=== PATIENT | female | born 1990 | race African-American/Black ===

== ENCOUNTER 2017-07-14 04:05 | Emergency (ER) | payer MEDICAID ==
[~2017-07-14] VITALS: Ht 157.5 cm; Wt 90.7 kg
[2017-07-14 04:13] VITALS: BP 182/83
[2017-07-14] MEDS ORDERED: AMOX500C PO (04:35)
--- NOTE | 2017-07-14 04:36 | PHYS DOC ---
Past Medical History Past Medical History: Asthma Past Surgical History: Additional Information: non smoker Alcohol Use: None Drug Use: None Adult General Chief Complaint Chief Complaint: COUGH HPI HPI Patient is a 26 year old female who presents with sore throat. Started a few days ago. Hard to swallow now. Has a little cough. No vomiting. No rash. Review of Systems Review of Systems Constitutional: Denies fever or chills Eyes: Denies change in visual acuity, redness, or eye pain HENT: POS nasal congestion or sore throat Respiratory: some cough; no shortness of breath Cardiovascular: No chest pain GI: Denies abdominal pain, nausea, vomiting, bloody stools or diarrhea : Denies dysuria or hematuria Musculoskeletal: Denies back pain or joint pain Integument: Denies rash or skin lesions Neurologic: Denies headache, focal weakness or sensory changes Allergies Allergies Allergies Coded Allergies Type Severity Reaction Last Updated Verified No Known Drug Allergies 01/28/15 No Physical Exam Physical Exam Constitutional: Well developed, well nourished, no acute distress, non-toxic appearance. HENT: Normocephalic, atraumatic, TM clear bilaterally; bilateral external ears normal, oropharynx moist,enlarged tonsils bilaterally with erythema; no exudate , nose normal. Eyes: PERRLA, EOMI, conjunctiva normal, no discharge. Neck: Normal range of motion, no tenderness, supple, no stridor. Cardiovascular:Heart rate regular rhythm, no murmur Lungs & Thorax: Bilateral breath sounds clear to auscultation Abdomen: Bowel sounds normal, soft, no tenderness, no masses, no pulsatile masses. Skin: Warm, dry, no erythema, no rash. Back: No tenderness, no CVA tenderness. Extremities: No tenderness, no cyanosis, no clubbing, ROM intact, no edema. Neurologic: Alert and oriented X 3, normal motor function, normal sensory function, no focal deficits noted. Psychologic: Affect normal, judgement normal, mood normal. Current Patient Data Vital Signs Vital Signs Date Time Temp Pulse Resp B/P (MAP) Pulse Ox O2 Delivery O2 Flow Rate FiO2 07/14/17 04:13 98.7 120 22 98 Room Air 98.7 Course & Med Decision Making Course & Med Decision Making No evidence of drooling or airway compromise. Treat for strep. Amoxicillin. Marek Disclaimer Marek Disclaimer This electronic medical record was generated, in whole or in part, using a voice recognition dictation system. Departure Departure Impression: Primary Impression: Pharyngitis Disposition: HOME, SELF-CARE Condition: STABLE Referrals: NO PCP (PCP) Patient Instructions: Viral and Bacterial Pharyngitis Scripts Amoxicillin (AMOXICILLIN) 500 Mg Capsule 1 CAP PO TID, #30 CAP Prov: RONY GARDNER MD 07/14/17 Problem Qualifiers Primary Impression: Pharyngitis Pharyngitis/tonsillitis etiology: unspecified etiology Qualified Codes: J02.9 - Acute pharyngitis, unspecified RONY GARDNER MD Jul 14, 2017 04:36
== END 2017-07-14 04:38 | disposition home or self-care (01) ==
LOC: ER 04:05
DX: J02.9 Acute pharyngitis, unspecified (principal); R05 Cough; J45.909 Unspecified asthma, uncomplicated
CPT/HCPCS: 99283

== ENCOUNTER 2017-09-14 07:28 | Observation (INO) | payer OTHER ==
[2017-09-10 02:51] VITALS: BP 136/88
[~2017-09-14 07:28] MED LIST: AMOX500C PO; CLIN150C14 PO
== END 2017-09-14 08:20 | disposition home or self-care (01) ==
LOC: 3 SO LND 07:28
PROVIDERS: ADMIT Obstetrics & Gynecology; ATTEND Obstetrics & Gynecology
DX: O36.8130 Decreased fetal movements, third trimester, not applicable or unspecified (principal); Z3A.33 33 weeks gestation of pregnancy
CPT/HCPCS: 59025; G0379

== ENCOUNTER 2017-09-15 03:46 | Observation (INO) | payer OTHER ==
[2017-09-10 02:51] VITALS: BP 136/88
== END 2017-09-15 06:00 | disposition home or self-care (01) ==
LOC: INTOOBSV 03:46 → 3 SO LND 03:46
PROVIDERS: ADMIT Obstetrics & Gynecology; ATTEND Obstetrics & Gynecology
DX: O46.93 Antepartum hemorrhage, unspecified, third trimester (principal); Z3A.33 33 weeks gestation of pregnancy
CPT/HCPCS: G0378; G0379

== ENCOUNTER 2018-09-10 04:08 | Emergency (ER) | payer OTHER ==
[~2018-09-10] VITALS: Ht 157.5 cm; Wt 90.7 kg
[2018-09-10 04:20] VITALS: BP 145/99
[2018-09-10] MEDS ORDERED: GUAI118L20 PO (04:32)
[2018-09-10] MEDS ORDERED: AZIT250T PO (04:32)
--- NOTE | 2018-09-10 04:32 | PHYS DOC ---
Past Medical History Past Medical History: Asthma Past Surgical History: Alcohol Use: None Drug Use: None Adult General Chief Complaint Chief Complaint: SORE THROAT HPI HPI Is a 27-year-old female who presents with complaint of cough, congestion and sore throat for the last week. Patient states the symptoms are getting worse. She states that she thought it was because she had a flu shot about a week ago but states that she feels like she should be feeling better at this point. Patient indicates that she has not been running a fever. She does indicate that she is getting some soreness in her chest from the coughing. Review of Systems Review of Systems Constitutional: Denies fever or chills [] HENT: Positive sinus congestion, sore throat and purulent nasal discharge[] Respiratory: Positive cough without shortness of breath [] Cardiovascular: No additional information not addressed in HPI [] Allergies Allergies Allergies Coded Allergies Type Severity Reaction Last Updated Verified No Known Drug Allergies 01/28/15 No Physical Exam Physical Exam Constitutional: Well developed, well nourished, no acute distress, non-toxic appearance. [] HENT: Normocephalic, atraumatic, bilateral external ears normal, oropharynx moist, no oral exudates, mild tenderness to palpation over the maxillary sinuses. [] Eyes: PERRLA, EOMI, conjunctiva normal, no discharge. [] Neck: Normal range of motion, no tenderness, supple, no stridor. [] Cardiovascular:Heart rate regular rhythm, no murmur [] Lungs & Thorax: Bilateral breath sounds clear to auscultation [] Extremities: No tenderness, no cyanosis, no clubbing, ROM intact, no edema. [] EKG EKG [] Radiology/Procedures Radiology/Procedures [] Course & Med Decision Making Course & Med Decision Making Pertinent Labs and Imaging studies reviewed. (See chart for details) [] Dragon Disclaimer Dragon Disclaimer This electronic medical record was generated, in whole or in part, using a voice recognition dictation system. Departure Departure Impression: Primary Impression: Upper respiratory infection Disposition: 01 HOME, SELF-CARE Condition: STABLE Referrals: NO PCP (PCP) Patient Instructions: Upper Respiratory Infection, Adult Scripts Guaifenesin/Codeine Phosphate (CHERATUSSIN AC SYRUP) 118 Ml Liquid 5 ML PO PRN Q6HRS PRN for COUGH, #120 ML Prov: ROLAND ORNELAS Jr. DO 09/10/18 Azithromycin (ZITHROMAX) 250 Mg Tablet 1 PKG PO UD, #6 TAB Prov: ROLAND ORNELAS Jr. DO 09/10/18 Problem Qualifiers Primary Impression: Upper respiratory infection URI type: unspecified URI Qualified Codes: J06.9 - Acute upper respiratory infection, unspecified ROLAND ORNELAS Jr. DO Sep 10, 2018 04:32
== END 2018-09-10 04:44 | disposition home or self-care (01) ==
LOC: ER 04:08
DX: J06.9 Acute upper respiratory infection, unspecified (principal); J45.909 Unspecified asthma, uncomplicated
CPT/HCPCS: 99283

== ENCOUNTER 2021-03-23 12:24 | Emergency (ER) | payer SELFPAY ==
[~2021-03-23] VITALS: Ht 157.5 cm; Wt 118.1 kg
[~2021-03-23 12:24] MED LIST changes: +AZIT250T PO; -CLIN150C14 PO; +CLIN150C15 PO; +GUAI118L20 PO
--- NOTE | 2021-03-23 12:38 | PHYS DOC ---
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 Patient states symptoms got worse last night and this morning she went to urgent care and was sent to the ED. Patient is also complaining of nausea and diarrhea. Denies any fever. (PACONidaENEIDA Smalls FA[employer] MACHINE REPAIRER) Review of Systems: Review of Systems: Constitutional: Denies fever or chills. [] Eyes: Denies change in visual acuity. [] HENT: Denies nasal congestion or sore throat. [] Respiratory: Denies cough or shortness of breath. [] Cardiovascular: Denies chest pain or edema. [] GI: Reports right lower quadrant abdominal pain with nausea and diarrhea, denies vomiting : Denies dysuria. [] Musculoskeletal: Reports right low back pain, denies joint pain. [] Integument: Denies rash. [] Neurologic: Denies headache, focal weakness or sensory changes. [] Psychiatric: Denies depression or anxiety. [] (PACOENEIDA Alva FAX MACHINE REPAIRER) Heart Score: C/O Chest Pain: N/A Risk Factors: Risk Factors: DM, Current or recent (<one month) smoker, HTN, HLP, family history of CAD, obesity. Risk Scores: Score 0 - 3: 2.5% MACE over next 6 weeks - Discharge Home Score 4 - 6: 20.3% MACE over next 6 weeks - Admit for Clinical Observation Score 7 - 10: 72.7% MACE over next 6 weeks - Early Invasive Strategies (ENEIDA RAVI FAX MACHINE REPAIRER) Allergies: Allergies: Allergies Coded Allergies Type Severity Reaction Last Updated Verified No Known Drug Allergies 01/28/15 No (ENEIDA RAVI FAX MACHINE REPAIRER) Physical Exam: PE: Constitutional: Well developed, well nourished, no acute distress, non-toxic appearance. [] HENT: Normocephalic, atraumatic, bilateral external ears normal, oropharynx moist, no oral exudates, nose normal. [] Eyes: PERRLA, EOMI, conjunctiva normal, no discharge. [] Neck: Normal range of motion, no tenderness, supple, no stridor. [] Cardiovascular:Heart rate regular rhythm, no murmur [] Lungs & Thorax: Bilateral breath sounds clear to auscultation [] Abdomen: Rounded abdomen. Bowel sounds normal, soft, no right upper quadrant tenderness with negative Shepard sign, no left upper quadrant tenderness, moderate right lower quadrant tenderness with positive psoas sign, positive obturator sign, patient is guarding the right lower quadrant, rebound tenderness also noted, no masses, no pulsatile masses. [] Skin: Warm, dry, no erythema, no rash. [] Back: No tenderness, no CVA tenderness. [] Extremities: No tenderness, no cyanosis, no clubbing, ROM intact, no edema. [] Neurologic: Alert and oriented X 3, normal motor function, normal sensory function, no focal deficits noted. [] Psychologic: Affect normal, judgement normal, mood normal. [] (ENEIDA RAVI APRN) EKG: EKG: [] (ENEIDA RAVI APRN) Radiology/Procedures: Radiology/Procedures: []PROCEDURE: CT ABD PELV W/ IV CONTRST ONLY EXAM: Abdomen and pelvis CT with intravenous contrast. HISTORY: Right lower quadrant pain. TECHNIQUE: Computed tomographic images of the abdomen and pelvis were obtained following the administration of intravenous contrast. Multiplanar reformatting was performed. *One or more of the following individualized dose reduction techniques were utilized for this examination: 1. Automated exposure control. 2. Adjustment of the mA and/or kV according to patient size. 3. Use of iterative reconstruction technique. COMPARISON: None. FINDINGS: Evaluation of the lower thorax is unremarkable. No suspicious hepatic lesion is seen. The gallbladder, pancreas, spleen, adrenal glands and kidneys are unremarkable. There is no appendicitis. There is no bowel obstruction or abnormal bowel wall thickening. The bladder is unremarkable. There is a suspected small fibroid along the anterior lower uterine segment. There is a 2.0 cm dominant right ovarian follicle/follicular cyst. The aorta is normal in caliber. There is no lymphadenopathy. There are 2 adjacent small fat-containing left periumbilical h ernias, larger of which measures 2.7 cm in maximum dimension and extends through a defect measuring 7 mm. There is no suspicious osseous lesion. IMPRESSION: 1. No evidence of appendicitis. 2. 2.0 cm dominant right ovarian follicle/follicular cyst. 3. Small uterine fibroid. 4. Small fat-containing left periumbilical hernias. Electronically signed by: Sia Payne MD (03/23/2021 1:50 PM) [facility] DICTATED and SIGNED BY: SIA PAYNE MD DATE: 03/23/21 [id number] (ENEIDA RAVI APRN) Course & Med Decision Making: Course & Med Decision Making Pertinent Labs and Imaging studies reviewed. (See chart for details) This is a 30-year-old female patient presenting to the ED today with right lower quadrant abdominal pain radiating to the back with nausea and diarrhea, symptoms since Wednesday which is 3 days ago. Negative urine hCG, urine analysis negative for infection, CBC CMP with no acute findings. Lipase was normal. CT of the abdomen and pelvic was negative for appendicitis, noted for right ovarian cyst, uterine fibroid, and left periumbilical hernia. Discharge to home. Follow-up with [facility] for the ovarian cyst and fibroid. Follow-up with PCP or general surgeon for periumbilical hernia. Heating pad recommended to the right lower quadrant, ibuprofen for pain or Tylenol. (ENEIDA RAVI APRN) Dragon Disclaimer: Dragon Disclaimer: This electronic medical record was generated, in whole or in part, using a voice recognition dictation system. (ENEIDA RAVI APRN) Departure Departure Impression: Primary Impression: Right lower quadrant pain Additional Impressions: Right ovarian cyst Uterine fibroid Qualified Codes: D25.9 - Leiomyoma of uterus, unspecified Umbilical hernia Qualified Codes: K42.9 - Umbilical hernia without obstruction or gangrene Disposition: 01 HOME / SELF CARE / HOMELESS Condition: STABLE Referrals: CANELO JOHNSON MD (PCP) Please follow up with your OBGYN and Primary care doctor in 1-2 weeks Patient Instructions: Abdominal Pain (Nonspecific), Fibroids, [id number], Ovarian Cyst Additional Instructions: Your CAT scan of the abdomen and pelvic is negative for appendicitis. You are noted to have a right ovarian cyst, uterine fibroid. This need to be followed up with an [facility]. You also have an umbilical hernia which she can follow-up with your primary care doctor or general surgeon. Consider using a heating pad on your abdomen. Consider taking ibuprofen 3 times a day or Tylenol. Attending Signature Attending Signature I have participated in the care of this patient and I have reviewed and agree with all pertinent clinical information above including history, exam, and recommendations. (ARGENTINA HECK DO) ENEIDA RAVI APRN March 23, 2021 12:38 ARGENTINA HECK DO March 23, 2021 17:46
[2021-03-23 12:46] LABS: BILIRUBIN,URINE NEGATIVE (NEG); CLARITY,URINE CLEAR; COLOR,URINE YELLOW; NITRITE,URINE NEGATIVE (NEG); PROTEIN,URINE NEGATIVE (NEG-TRACE); UROBILINOGEN,URINE 0.2 mg/dL (0.2 mg/dL)
[2021-03-23] MEDS ORDERED: MORPHINE SULFATE 10 MG/ML VIAL. IV ONE (13:00)
[2021-03-23] MEDS ORDERED: IV NORMAL SALINE 1000ML BAG 1,000 ML IV ONE (13:00)
[2021-03-23] MEDS ORDERED: ONDANSETRON PF 4 MG/2 ML VIAL. IVP ONE (13:00)
[2021-03-23 13:12] LABS: BACTERIA,URINE FEW /HPF (0-FEW); RBC,URINE RARE /HPF (0-2); WBC,URINE OCC /HPF (0-4)
[2021-03-23] MEDS ORDERED: CONTRAST GIVEN. MC PRN (13:15)
[2021-03-23] MEDS ORDERED: IOHEXOL 300 MG/ML 100ML VIAL. IV ONE (13:15)
[2021-03-23 13:20] LABS: BASO % 0 % (0-3); EOS # 0.1 x10^3/uL (0.0-0.7); EOS % 2 % (0-3); HEMATOCRIT 34.6 % (36.0-47.0); HEMOGLOBIN 10.8 g/dL (12.0-15.5); LYMPH % 27 % (24-48); MEAN CORPUSCULAR HEMOGLOBIN 21 pg (25-35); MEAN CORPUSCULAR HGB CONC 31 g/dL (31-37); MEAN CORPUSCULAR VOLUME 68 fL (79-100); MONO # 0.5 x10^3/uL (0.0-1.1); MONO % 7 % (0-9); NEUT # 4.8 x10^3/uL (1.8-7.7); NEUT % 64 % (31-73); PLATELET COUNT 455 x10^3/uL (140-400); RED BLOOD COUNT 5.07 x10^6/uL (3.50-5.40); RED CELL DISTRIBUTION WIDTH 16.9 % (11.5-14.5); WHITE BLOOD COUNT 7.5 x10^3/uL (4.0-11.0)
[2021-03-23 13:27] LABS: CALCIUM 8.9 mg/dL (8.5-10.1); CREATININE 0.8 mg/dL (0.6-1.0); GFR 101.9; POTASSIUM 4.2 mmol/L (3.5-5.1)
[2021-03-23 13:33] LABS: ALBUMIN 3.8 g/dL (3.4-5.0); TOTAL BILIRUBIN 0.5 mg/dL (0.2-1.0); TOTAL PROTEIN 7.7 g/dL (6.4-8.2)
--- NOTE | 2021-03-23 13:53 | RAD ---
EXAM: Abdomen and pelvis CT with intravenous contrast. HISTORY: Right lower quadrant pain. TECHNIQUE: Computed tomographic images of the abdomen and pelvis were obtained following the administ ration of intravenous contrast. Multiplanar reformatting was performed. *One or more of the following individualized dose reduction techniques were utilized for this examina tion: 1. Automated exposure control. 2. Adjustment of the mA and/or kV according to patient size. 3. Use of iterative reconstruction technique. COMPARISON: None. FINDINGS: Evaluation of the lower thorax is unremarkable. No suspicious hepatic lesion is seen. The g allbladder, pancreas, spleen, adrenal glands and kidneys are unremarkable. There is no appendicitis. There is no bowel obstruction or abnormal bowel wall thickening. The bladder is unremarkable. There is a suspected small fibroid along the anterior lower uterine segm ent. There is a 2.0 cm dominant right ovarian follicle/follicular cyst. The aorta is normal in calibe r. There is no lymphadenopathy. There are 2 adjacent small fat-containing left periumbilical hernias, larger of which measures 2.7 cm in maximum dimension and extends through a defect measuring 7 mm. Th ere is no suspicious osseous lesion. IMPRESSION: 1. No evidence of appendicitis. 2. 2.0 cm dominant right ovarian follicle/follicular cyst. 3. Small uterine fibroid. 4. Small fat-containing left periumbilical hernias. Electronically signed by: Sia Eli MD (03/23/2021 1:50 PM) [facility]
[2021-03-23 14:20] LABS: PLT ESTIMATE INCREASED (ADEQUATE)
[2021-03-23 14:21] LABS: MICROCYTOSIS MARKED; POLYCHROMASIA SLIGHT
[2021-03-23 14:23] LABS: ANISOCYTOSIS SLIGHT; HYPOCHROMIA MOD
[2021-03-23 14:32] VITALS: BP 113/71
== END 2021-03-23 15:03 | disposition home or self-care (01) ==
LOC: ER 12:24
DX: N83.201 Unspecified ovarian cyst, right side (principal); D25.9 Leiomyoma of uterus, unspecified; K42.9 Umbilical hernia without obstruction or gangrene; J45.909 Unspecified asthma, uncomplicated
CPT/HCPCS: 36415; 74177; 80053; 81001; 81025; 83690; 85025; 87086; 96361; 96374; 96375; 99285; J2270; J2405; J7030; Q9967